=== PATIENT | male | born 1960 | race Caucasian/White ===

== ENCOUNTER 2018-10-14 11:18 | Day surgery (SDC) | payer OTHER ==
[~2018-10-14] VITALS: Ht 175.3 cm; Wt 97.7 kg
[2018-10-14] VITALS (7 sets, daily range): BP systolic 138–180; BP diastolic 72–83; PULSE 48–88; TEMP 97–99.2
--- NOTE | 2018-10-14 13:00 | NUR ---
Resting and spouse in room. Offers no complaints of pain or nausea. Call light in reach.
--- NOTE | 2018-10-14 15:00 | NUR ---
Continues to rest and awaits surgery. Spouse in room.
[2018-10-14] MEDS ORDERED: NORVASC 5MG5 MG/TAB PO (15:20)
[2018-10-14] MEDS ORDERED: TESSALON P100 MG/CAP PO (15:21)
[2018-10-14] MEDS ORDERED: PRILOSEC 20MG20 MG PO (15:22)
[2018-10-14] MEDS ORDERED: LYRICA 75MG CAP75 MG PO (15:22)
[2018-10-14] MEDS ORDERED: VIAGRA100 M1 PO (15:23)
[2018-10-14] MEDS ORDERED: XELPROS2.5 ML OP (15:23)
--- NOTE | 2018-10-14 18:02 | NUR ---
PT TO ROOM 327 VIA CART WITH REPORT FROM CAIO MONTALVO PACU @[id number]. PT IS A/O X3. VOIDED RED TINGED YELLOW URINE. IV TO RAC. ASSISTING PT TO ORDER GENERAL DIET. PT DENIES PAIN AT THIS TIME.
--- NOTE | 2018-10-14 19:29 | NUR ---
REPORT RECEIVED. 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 VOIDED X2 LIGHT YELLOW WITH LIGHT PINK TINGE. TOLERATING PO. DENIES PAIN. VS STABLE-SOME ELEVATION IN BLOOD PRESSURE EARLY IN POST OP VITALS-NOW WNL. DISCHARGE INSTRUCTIONS GIVEN TO INCLUDE CALLING FOR FOLLOW APPOINTMENT AND WHEN TO RETURN TO WORK. IV DCd-CATH INTACT. DENIES ANY QUESTIONS OR CONCERNS.
--- NOTE | 2018-10-14 20:55 | NUR ---
DISCHARGE INSTRUCTIOS GIVEN BOTH VERBAL AND HANDWRITTEN. DISCUSSED F/U APPOINTMENT, HOME MEDICATIONS AND S/S OF INFECTIONS. DENIES QUESTIONS AT THIS TIME. PRESCRIPTIONS GIVEN. ESCORTED OFF UNIT BY THIS NURSE VIA WHEELCHAIR IN STABLE CONDIION.
== END 2018-10-14 20:45 ==
LOC: SDCO 11:18 → JCC 17:49 → SDCO 20:45
DX: N20.1 Calculus of ureter (principal); Z87.891 Personal history of nicotine dependence; I10 Essential (primary) hypertension; G47.33 Obstructive sleep apnea (adult) (pediatric); K21.9 Gastro-esophageal reflux disease without esophagitis; K44.9 Diaphragmatic hernia without obstruction or gangrene
CPT/HCPCS: OP; C1769; C2617; J0690; J1100; J1885; J2405; J2704; J3010; J7030; Q9967

== ENCOUNTER → 2019-12-11 | Outpatient (CLI) | payer OTHER ==
[~2019-12-11] MED LIST: LYRICA 75MG CAP75 MG PO; NORVASC 5MG5 MG/TAB PO; PRILOSEC 20MG20 MG PO; TESSALON P100 MG/CAP PO; VIAGRA100 M1 PO; XELPROS2.5 ML OP
== END ==
LOC: MHCPAIN 09:02
DX: M47.817 Spondylosis without myelopathy or radiculopathy, lumbosacral region (principal); M54.5 Low back pain; M53.3 Sacrococcygeal disorders, not elsewhere classified; M96.1 Postlaminectomy syndrome, not elsewhere classified
CPT/HCPCS: G0463

== ENCOUNTER → 2019-12-21 | Outpatient (CLI) | payer OTHER | LOC: MHCPAIN 07:59 | DX: M47.817 Spondylosis without myelopathy or radiculopathy, lumbosacral region (principal); M54.5 Low back pain; G89.29 Other chronic pain; M54.16 Radiculopathy, lumbar region | CPT/HCPCS: J1100; Q9967 ==

== ENCOUNTER → 2020-01-01 | Outpatient (CLI) | payer OTHER | LOC: MHCPAIN 09:28 | DX: M47.817 Spondylosis without myelopathy or radiculopathy, lumbosacral region (principal); M53.3 Sacrococcygeal disorders, not elsewhere classified; M54.16 Radiculopathy, lumbar region; G89.29 Other chronic pain | CPT/HCPCS: G0463 ==

== ENCOUNTER → 2020-01-11 | Outpatient (CLI) | payer OTHER | LOC: MHCPAIN 07:55 | DX: M47.817 Spondylosis without myelopathy or radiculopathy, lumbosacral region (principal); M96.1 Postlaminectomy syndrome, not elsewhere classified; M54.16 Radiculopathy, lumbar region; M53.3 Sacrococcygeal disorders, not elsewhere classified | CPT/HCPCS: J1100; Q9967 ==

== ENCOUNTER → 2020-01-29 | Outpatient (CLI) | payer OTHER | LOC: MHCPAIN 08:50 | DX: M47.817 Spondylosis without myelopathy or radiculopathy, lumbosacral region (principal); M54.5 Low back pain; M96.1 Postlaminectomy syndrome, not elsewhere classified; G89.29 Other chronic pain; M54.16 Radiculopathy, lumbar region | CPT/HCPCS: G0463 ==

== ENCOUNTER → 2020-09-09 | Outpatient (CLI) | payer OTHER | LOC: MHCPAIN 08:51 | DX: M47.817 Spondylosis without myelopathy or radiculopathy, lumbosacral region (principal); M96.1 Postlaminectomy syndrome, not elsewhere classified; M54.16 Radiculopathy, lumbar region; G89.29 Other chronic pain | CPT/HCPCS: G0463 ==

== ENCOUNTER → 2020-09-19 | Outpatient (CLI) | payer OTHER | LOC: MHCPAIN 08:31 | DX: M47.817 Spondylosis without myelopathy or radiculopathy, lumbosacral region (principal); M54.16 Radiculopathy, lumbar region ==

== ENCOUNTER → 2020-09-30 | Outpatient (CLI) | payer OTHER | LOC: MHCPAIN 10:53 | DX: M47.817 Spondylosis without myelopathy or radiculopathy, lumbosacral region (principal); M96.1 Postlaminectomy syndrome, not elsewhere classified; M53.3 Sacrococcygeal disorders, not elsewhere classified; G89.29 Other chronic pain | CPT/HCPCS: G0463 ==

== ENCOUNTER → 2020-10-03 | Outpatient (CLI) | payer OTHER | LOC: MHCPAIN 08:06 | DX: M47.817 Spondylosis without myelopathy or radiculopathy, lumbosacral region (principal); M54.16 Radiculopathy, lumbar region | CPT/HCPCS: J1100; Q9967 ==

== ENCOUNTER → 2020-10-23 | Outpatient (CLI) | payer OTHER | LOC: MHCPAIN 14:07 | DX: M47.816 Spondylosis without myelopathy or radiculopathy, lumbar region (principal); M54.5 Low back pain; M53.3 Sacrococcygeal disorders, not elsewhere classified; G89.29 Other chronic pain | CPT/HCPCS: G0463 ==

== ENCOUNTER → 2023-04-20 | Outpatient (CLI) | payer OTHER | LOC: MHCPAIN 15:01 | DX: M48.061 Spinal stenosis, lumbar region without neurogenic claudication (principal); M96.1 Postlaminectomy syndrome, not elsewhere classified; M47.817 Spondylosis without myelopathy or radiculopathy, lumbosacral region | CPT/HCPCS: G0463 ==

== ENCOUNTER → 2023-05-19 | Outpatient (CLI) | payer OTHER | LOC: MHCPAIN 12:56 | DX: M54.50 Low back pain, unspecified (principal); M51.36 Other intervertebral disc degeneration, lumbar region | CPT/HCPCS: G0463 ==

== ENCOUNTER → 2024-02-09 | Outpatient (CLI) | payer OTHER | LOC: MHCPAIN 13:59 | DX: M51.37 Other intervertebral disc degeneration, lumbosacral region (principal); M51.26 Other intervertebral disc displacement, lumbar region; M48.07 Spinal stenosis, lumbosacral region; M96.1 Postlaminectomy syndrome, not elsewhere classified; M54.16 Radiculopathy, lumbar region | CPT/HCPCS: G0463 ==

== ENCOUNTER → 2024-03-16 | Outpatient (CLI) | payer OTHER ==
[~2024-03-16] MED LIST changes: +Iohexol 300 - 10 ML VIAL ONE; +Lidocaine PF 2% (20 MG/ML) 2 ML VIAL ONE
== END ==
LOC: MHCPAIN 10:41
DX: M47.817 Spondylosis without myelopathy or radiculopathy, lumbosacral region (principal); M48.061 Spinal stenosis, lumbar region without neurogenic claudication; M51.26 Other intervertebral disc displacement, lumbar region; Z98.1 Arthrodesis status
CPT/HCPCS: J1100; Q9967